=== PATIENT | female | born 1940 | race African-American/Black ===

== ENCOUNTER 2022-04-10 10:56 | Emergency (ER) | payer MEDICARE, SELFPAY ==
[2022-04-10 10:57] VITALS: BP 128/78; PULSE 92; RESP 18; TEMP 36.4; O2SAT 100; BMI 19.1
--- NOTE | 2022-04-10 11:46 | EKG12_ITS ---
Test Reason : Blood Pressure : / mmHG Vent. Rate : 076 BPM Atrial Rate : 076 BPM P-R Int : 182 ms QRS Dur : 090 ms QT Int : 394 ms P-R-T Axes : 068 010 036 degrees QTc Int : 443 ms Normal sinus rhythm Nonspecific T wave abnormality Abnormal ECG Confirmed by JOVITA SAMS, NEIDA ([id number]), editor farm journal MERYL SCOTT ([id number]) on 04/11/2022 11:26:56 AM Referred By: MARIA FERNANDA Confirmed By:NEIDA HUSSEIN MD
--- NOTE | 2022-04-10 11:47 | EDS_ITS ---
HPI History of Present Illness Chief Complaint: Abn Labs Informant: patient Narrative Narrative: Patient not feeling well. She denies any specific symptoms. She is on chemotherapy for some type of cancer that has metastases, but the patient does not know the specifics and there is no one else here to provide history for her. Currently she is in [place] [facility], sees oncology affiliated with [facility]. According to a note left by nursing taken from report from the facility, the patient's niece wanted the patient to be evaluated in the ER because she is not feeling well. I asked the patient this and she confirms that is true. She cannot remember how long it has been since she was not feeling well. She has thrombocytopenia according to labs that were sent with her from outpatient 3 days ago 04/07, shows other platelets are 35 and someone is aware of this and monitoring it. I reviewed those outpatient labs, CBC from 04/07 as well as CBC and CMP from 03/27, and a comprehensive metabolic panel from 04/07. I also reviewed intermediate records that accompany the patient, suggesting that she has lung cancer as her primary. Additionally, she is a full code. There are no notes that accompany the patient that discuss her recent condition, symptoms, vital signs, etc. She sees [facility] with and follows with Dr. Booker. The patient denies having any pain right now, dyspnea, nausea, headache, vision changes, fevers or chills recently, she think she had a little diarrhea recently but is unable to tell me any details about this, she states she saw no blood. Later discussed with daughter, who stated that the patient was more weak and disoriented today than usual. She states she has been getting chemotherapy and whole brain radiation, has been on dexamethasone for several months because of brain mets and tapered off of it 1-2 weeks ago. [facility] Medical History Constipation, unspecified Diverticulosis of intestine, part unspecified, without perforation or abscess without bleeding Essential (primary) hypertension Insomnia, unspecified Major depressive disorder, recurrent, unspecified Malignant neoplasm of unspecified part of unspecified bronchus or lung Other malaise Other specified disorders of bone density and structure, unspecified site Rheumatoid arthritis, unspecified Unspecified osteoarthritis, unspecified site Unspecified protein-calorie malnutrition Home Medications acetaminophen 325 mg tablet 650 mg PO Q6H PRN Pain 04/10/22 [History Last Taken Unknown] albuterol sulfate 90 mcg/actuation aerosol inhaler 1 inh inhalation Q6H SHORTNESS OF BREATH 04/10/22 [History Last Taken 04/10/22 08:30] carvedilol 12.5 mg tablet 12.5 mg PO BID HEART 04/10/22 [History Last Taken 04/10/22 08:30] dexamethasone 4 mg tablet 4 mg PO Q12H #60 tabs 04/10/22 [Rx Last Taken Unknown] dronabinol 2.5 mg capsule (Marinol) 2.5 mg PO BID MALIGNANT NEOPLASM OF BRONCHUS/LUNG 04/10/22 [History Last Taken 04/10/22 08:30] hydroxychloroquine 200 mg tablet 200 mg PO DAILY RHEUMATOID ARTHRITIS 04/10/22 [History Last Taken 04/10/22 08:30] lidocaine 4 % topical patch 1 patch topical DAILY PAIN 04/10/22 [History Last Taken 04/10/22 08:30] magnesium oxide 400 mg PO DAILY SUPPLEMENT 04/10/22 [History Last Taken 04/10/22 08:30] methocarbamol 500 mg tablet 500 mg PO 4X/DAY PAIN 04/10/22 [History Last Taken 04/10/22 08:30] multivitamin with minerals 1 tab PO DAILY SUPPLEMENT 04/10/22 [History Last Taken 04/10/22 08:30] omeprazole 20 mg capsule,delayed release 20 mg PO DAILY ACID REFLUX 04/10/22 [History Last Taken 04/10/22 05:00] ondansetron HCl 8 mg tablet 8 mg PO Q12H PRN NAUSEA/VOMITING 04/10/22 [History Last Taken Unknown] osimertinib 80 mg tablet (Tagrisso) 80 mg PO QODAY MALIGNANT NEOPLASM OF BRONCHUS/LUNG 04/10/22 [History Last Taken 04/10/22 08:30] polyethylene glycol 3350 17 gram/dose oral powder 17 g PO BID CONSTIPATION 04/10/22 [History Last Taken 04/10/22 08:30] sennosides 8.6 mg-docusate sodium 50 mg tablet (Senna Plus) 2 tab-cap PO Q12H PRN Constipation 04/10/22 [History Last Taken Unknown] zinc oxide 40 % topical ointment 1 applic topical TID BUTTOCKS 04/10/22 [History Last Taken 04/10/22 08:30] Allergy/AdvReac Type Severity Reaction Status Date / Time nickel Allergy PT UNABLE Verified 04/10/22 11:06 TO RESPOND-NEEDS F/U Social History Smoking Status: Unknown if ever smoked ROS ROS ED Review of Systems ROS Unobtainable: due to encephalopathy Constitutional Constitutional ED: Reports fatigue and weakness; Denies body ache(s), chills or fever(s) Eyes Eyes: Denies change in vision or diplopia ENT ENT ED: Denies sore throat Cardiovascular Cardiovascular: Denies chest pain or palpitations Respiratory/Chest Respiratory/Chest: Reports cough; Denies dyspnea Gastrointestinal Gastrointestinal: Reports diarrhea; Denies abdominal pain, nausea or vomiting Musculoskeletal Musculoskeletal: Denies back pain or neck pain Integumentary Denies abscess or rash Neurologic Neurologic: Denies headache(s) Psychiatric Psychiatric: Denies suicidal thoughts EXAM Physical Exam Const Vital Signs: 04/10/22 10:57 04/10/22 11:32 04/10/22 12:39 Temperature 97.5 F L Temperature Source Temporal Pulse Rate 92 Respiratory Rate 18 Respiratory Pattern Normal Blood Pressure 128/78 H Blood Pressure Mean 94 Pulse Ox 100 94 Oxygen Delivery Method Room Air Room Air 04/10/22 13:00 04/10/22 15:00 Temperature Temperature Source Pulse Rate 62 95 Respiratory Rate 18 21 H Respiratory Pattern Blood Pressure 154/63 H 124/62 H Blood Pressure Mean 93 82 Pulse Ox Oxygen Delivery Method Positive well nourished and well developed General Appearance ED: well developed and NAD HEENT Reports moist mucous membranes normocephalic and atraumatic Eyes PERRL and EOMs intact bilaterally Neck full ROM and supple Resp normal respiratory effort and clear to auscultation bilaterally Effort and Inspection: able to speak in complete sentences Cardio regular rate, regular rhythm and no murmurs GI non-tender and non-distended Auscultation: normoactive bowel sounds Palpation: soft Back/Spine no CVA tenderness General Back: other FROM Extremity normal to inspection General Extremety ED: Negative for edema, pulses abnormal or tenderness General Extremity: Negative for edema or pulses abnormal Neuro CN's II-XII intact bilaterally and no sensory deficits noted Neuro Narrative: Nonfocal neurologic exam with regards to motor and sensory. I help the patient sit up and she can hold herself up by grabbing the rails, so I can auscultate her lungs posteriorly. However she is too weak to stand even with assistance. Sensorium / Orientation: awake, alert and orientation impaired Motor Exam: general weakness Psych Psych Narrative: Flat affect. Responds appropriately to questions but with 1-2 word answers mostly. Skin no rashes or lesions noted and no wounds MDM MDM MDM Narrative Medical decision making narrative: Patient's vital signs remained normal throughout her ED stay, her blood pressure actually went up a little. She is not hypoxic or in respiratory distress. 1 view chest x-ray appears to show some early infiltrates in the right upper lobe, on my interpretation. Radiology's interpretation has been reviewed and I agree with that. She was a very difficult stick, creating delays in getting lab results. I did have blood cultures obtained, the patient was too weak to get up and urinate, so nurses straight catheter for urinalysis, it does not appear to be the source of infection but her lungs may be. Patient does seem a little disoriented, she can answer yes or no questions, she denies being in any pain or being dyspneic, it is unknown if this is accurate when she said yes she was coughing, I did not hear her cough objectively in the emergency department. I checked several times, the patient's niece had come by but I kept missing her to discuss. She is a lactic acid of 3.7, cardiac work-up unremarkable, liver enzymes are normal, she is a little prerenal but the rest of her metabolic testing is normal. I waited a while for blood counts to come back, reviewing them when they did return. She is not neutropenic, her ANC is 5100. Her thrombocytopenia is a little improved compared to what it was, 44,000 now, she was 35,000 three days ago. We did panculture the patient prior to starting her on empiric antibiotics to cover her for the pneumonia, IV Rocephin and Zithromax. Her vital signs are stable and she is not hypoxic. Called to discuss with her oncologist Dr. Booker. She said the patient was on Decadron for months and recently tapered off of it 1 or 2 weeks ago, she had brain metastases and was getting whole brain radiation that she is now finished with. When getting a restaging scan about 1 month ago, a possible cavitary lesion was noted in the right upper lobe, so the patient actually was scheduled for an outpatient plain CT chest today. She was requesting that we obtain that which I think is reasonable, we will have that done, and she agrees the patient can be safely discharged back to the intermediate to follow-up with her as an outpatient, she is coordinating that with the niece PREETHI. She is in agreement with discontinuing the Bactrim temporarily which may be causing some of the thrombocytopenia, and restarting dexamethasone 4 mg every 12 hours going forward, so I gave her a dose of that here. Lab Data Attestation: I reviewed the patient's lab results. Labs: Laboratory Results - last 24 hr 04/10/22 04/10/22 04/10/22 13:40 13:40 13:40 WBC 5.7 RBC 3.13 L Hgb 9.9 L Hct 31.0 L MCV 99.0 MCH 31.6 MCHC 31.9 L RDW Std Deviation 66.4 H RDW Coeff of Abdirizak 18.4 H Plt Count 44 L* MPV 10.5 Immature Gran % (Auto) 4.200 H Neut % (Auto) 89.1 H Lymph % (Auto) 3.5 L [place] % (Auto) 2.8 Eos % (Auto) 0.0 Baso % (Auto) 0.4 Absolute Neuts (auto) 5.1 Absolute Lymphs (auto) 0.20 L Nucleated RBC % 1.1 Diff Path Review May foll Platelet Estimate MKD DEC Anisocytosis 1+ PT 16.0 H INR 1.3 APTT 30.5 Sodium 140 Potassium 3.6 Chloride 108 H Carbon Dioxide 21.0 Anion Gap 11 BUN 27 H Creatinine 0.89 Estim Creat Clear Calc 42.82 Est GFR (MDRD) Af Amer 78 Est GFR (MDRD) Non-Af 65 BUN/Creatinine Ratio 30.3 H Glucose 177 H Lactic Acid Calcium 9.3 Total Bilirubin 0.50 AST 13 L ALT 23 Alkaline Phosphatase 65 Troponin I High Sens 14 Total Protein 5.4 L Albumin 2.6 L Globulin 2.8 Albumin/Globulin Ratio 0.9 Urine Color Urine Clarity Urine pH Ur Specific [place] Urine Protein Urine Glucose (UA) Urine Ketones Urine Occult Blood Urine Nitrite Urine Bilirubin Urine Urobilinogen Ur Leukocyte Esterase Urine RBC Urine WBC Ur Squamous Epith Cells Urine Bacteria Urine Mucus 04/10/22 04/10/22 13:40 14:30 WBC RBC Hgb Hct MCV MCH MCHC RDW Std Deviation RDW Coeff of Abdirizak Plt Count MPV Immature Gran % (Auto) Neut % (Auto) Lymph % (Auto) [place] % (Auto) Eos % (Auto) Baso % (Auto) Absolute Neuts (auto) Absolute Lymphs (auto) Nucleated RBC % Diff Path Review Platelet Estimate Anisocytosis PT INR APTT Sodium Potassium Chloride Carbon Dioxide Anion Gap BUN Creatinine Estim Creat Clear Calc Est GFR (MDRD) Af Amer Est GFR (MDRD) Non-Af BUN/Creatinine Ratio Glucose Lactic Acid 3.7 H* Calcium Total Bilirubin AST ALT Alkaline Phosphatase Troponin I High Sens Total Protein Albumin Globulin Albumin/Globulin Ratio Urine Color Yellow Urine Clarity Sl. Cloudy Urine pH 6.0 Ur Specific [place] 1.020 Urine Protein 30 H Urine Glucose (UA) 50 H Urine Ketones 5 H Urine Occult Blood Negative Urine Nitrite Negative Urine Bilirubin 1 H Urine Urobilinogen 4 H Ur Leukocyte Esterase 25 H Urine RBC 0 SEEN Urine WBC 0-5 SEEN Ur Squamous Epith Cells 0 SEEN Urine Bacteria 1+ Urine Mucus 0 SEEN Radiography Chest X-Ray - ED: 1 View, Read by ED Physician and Right Infiltrate Diagnostic Testing: Clinical Impression(s) from Imaging Studies Chest X-Ray 04/10/22 13:05 IMPRESSION: Mild increased markings in the right upper lobe as well as medial aspect of the right lung base suggestive of early infiltrate. Blunting of the right cosmetic angle. Electronically Signed: Ifeanyi Shepard MD at 13:36 EST Reading Location ID and State: [facility] / [place] , Service support , Rhythm Strip Rhythm Strip: Sinus Rhythm Rate: 75 Ectopy: None EKG Initial EKG: Attestation: I personally reviewed and interpreted this EKG as follows: Interpretation: Sinus Rhythm, No Acute Injury Pattern and Non-Specific ST Changes (Diffuse flattening otherwise unremarkable T waves. No ST elevation or depressions.) Prior: No Prior Discharge Plan Triage Chief Complaint: Abn Labs ED Provider: Mahesh Benoit Dx/Rx/DC Orders Clinical Impression: Pneumonia, Acquired immunocompromised state, Metastatic primary lung cancer, Pancytopenia due to antineoplastic chemotherapy Instructions: ED Pneumonia (Adult) Prescriptions: New dexamethasone 4 mg tablet 4 mg PO Q12H Qty: 60 0RF Continued methocarbamol 500 mg tablet 500 mg PO 4X/DAY acetaminophen 325 mg Tablet 650 mg PO Q6H PRN (Reason: Pain) carvedilol 12.5 mg tablet 12.5 mg PO BID lidocaine 4 % Adhesive Patch,Medicated 1 patch TOPICAL DAILY ondansetron HCl 8 mg tablet 8 mg PO Q12H PRN (Reason: NAUSEA/VOMITING) sennosides-docusate sodium [Senna Plus] 8.6-50 mg Tablet 2 tab-cap PO Q12H PRN (Reason: Constipation) dronabinol [Marinol] 2.5 mg Capsule 2.5 mg PO BID omeprazole 20 mg capsule,delayed release(DR/EC) 20 mg PO DAILY hydroxychloroquine 200 mg tablet 200 mg PO DAILY multivitamin with minerals Tablet 1 tab PO DAILY polyethylene glycol 3350 17 gram/dose Powder 17 g PO BID albuterol sulfate 90 mcg/actuation HFA aerosol inhaler 1 inh INHALATION Q6H zinc oxide 40 % Ointment 1 applic TOPICAL TID Tagrisso 80 mg tablet 80 mg PO QODAY magnesium oxide 400 mg magnesium Tablet 400 mg PO DAILY Discontinued sulfamethoxazole-trimethoprim [Bactrim DS] 800-160 mg Tablet 1 tab PO MOWEFR dexamethasone 1 mg tablet 1 mg PO DAILY dexamethasone 1 mg tablet 0.5 mg PO DAILY Primary Care Provider: Matthew Ram Referrals: Dr. Jhony [Other] - As soon as possible (call regarding recommendation for follow up; CT and XR images should be sent to gravity prospecting observer for her to review (if technology works as designed)) Matthew Ram MD [Primary Care Provider] - (recheck ideally within next 2-3 days) Activity Restrictions/Additional Instructions: will stop Bactrim for now, may be contributing to low platelets Disposition Disposition: Senior Care Facility
[2022-04-10 12:39] VITALS: O2SAT 94
--- NOTE | 2022-04-10 12:55 | ED.RN ---
ED STAFF UNABLE TO OBTAIN VASCULAR ACCESS, LAB CALLED FOR [facility] TO COME FOR BLOOD DRAW
[2022-04-10 13:00] VITALS: BP 154/63; PULSE 62; RESP 18
--- NOTE | 2022-04-10 13:05 | RAD_ITS ---
STUDY: X-RAY CHEST REASON FOR EXAM: Female, 81 years old. Weakness, immunocompromised TECHNIQUE: Single AP portable view of the chest. COMPARISON: None. FINDINGS: EKG electrodes are seen. Surgical clips are seen in the left axillary region. Mild increased markings in the medial aspect of the right lung base as well as in the left upper lobe suggestive of possible early infiltrates. There is blunting of the right costophrenic angle. Normal size heart. Normal mediastinum and josiah. Normal visualized pulmonary arteries. There is atherosclerotic calcification of the aortic arch with tortuosity. There are diffuse degenerative changes of the visualized thoracic spine. Normal visualized ribs, clavicles, and shoulders. There is no demonstrated abnormality of the visualized soft tissue structures of the upper abdomen. RAD/Chest 1 View (Portable) IMPRESSION: Mild increased markings in the right upper lobe as well as medial aspect of the right lung base suggestive of early infiltrate. Blunting of the right cosmetic angle. Electronically Signed: Ifeanyi Shepard MD at 13:36 EST ,
[2022-04-10 14:02] LABS: Absolute Neutrophil Count 5.1 X10^3/uL (2.0-7.7); Basophil# 0.02 X10^3/uL; Basophil% 0.4 % (0-1); Hemoglobin 9.9 g/dL (12.0-15.0); Lymphocyte % 3.5 % (19-41); Mean Corp Hgb Conc 31.9 g/dL (32-36); Mean Corpuscular Hgb 31.6 pg (27.0-32.0); Mean Platelet Vol. 10.5 fl (6.2-12.0); Monocyte# 0.16 X10^3/uL; Monocyte% 2.8 % (0-10); NRBC Flagged by Analyzer 1.1 % (0-5); Neutrophil # 5.06 X10^3/uL (2.7-7.7); Neutrophil % 89.1 % (47-70); POSITIVE COUNT YES; POSITIVE DIFFERENTIAL YES; POSITIVE MORPHOLOGY YES; Platelet Count 44 K/mm3 (150-450); RBC Distribution Width CV 18.4 % (11.6-14.6); RBC Distribution Width SD 66.4 fl (35.1-43.9); Red Blood Count 3.13 M/mm3 (4.2-5.4); White Blood Count 5.7 K/mm3 (4.4-11.0)
[2022-04-10 14:16] LABS: ALB/GLOB Ratio 0.9 RATIO (0.9-2.4); AST(SGOT) 13 U/L (15-37); Alanine Aminotransfer ALT/SGPT 23 U/L (13-56); Albumin, Serum 2.6 g/dL (3.2-5.0); Alkaline Phosphatase 65 U/L (45-117); Anion Gap 11 (5-15); BUN 27 mg/dL (7-18); BUN/Creat Ratio 30.3 RATIO (10-20); Calcium,Total 9.3 mg/dL (8.5-10.1); Chloride 108 mmol/L (98-107); Creatinine, Serum 0.89 mg/dL (0.55-1.02); EST Glomerular Filtration Rate 65 mL/min (>60); Est Glom Filt Rate - Afr Amer 78 mL/min (>60); Estimated Creatinine Clearance 42.82 ml/min; Globulin 2.8 g/dL (2.2-4.2); Glucose 177 mg/dL (74-106); Potassium 3.6 mmol/L (3.5-5.1); Protein, Total 5.4 g/dL (6.4-8.2); Sodium Level 140 mmol/L (136-145); Troponin-I HS 14 pg/mL (3.0-54.0)
[2022-04-10 14:30] LABS: Lactic Acid 3.7 mmol/L (0.4-1.9)
[2022-04-10 14:31] LABS: International Normalized Ratio 1.3
[2022-04-10 14:32] LABS: Partial Thromboplast Time 30.5 Seconds (24.1-36.2)
[2022-04-10 14:35] LABS: Mucous, Urine 0 SEEN /hpf (<or=2+); Red Blood Cells-Urine 0 SEEN /hpf (0-5); Squamous Epithelial Cells - UA 0 SEEN /hpf (5-10)
[2022-04-10 14:58] LABS: Color, Urine Yellow (Yellow); Glucose, Dipstick 50 mg/dl (Normal); Ketone-Dipstick 5 mg/dl (Negative); Leukocyte Esterase-Dipstick 25 /ul (Negative); Nitrite-Dipstick Negative (Negative); Occult Blood-Urine Negative /ul (Negative); Protein-Dipstick 30 mg/dl (Negative); Urine Clarity Sl. Cloudy (Clear); Urine Urobilinogen 4 mg/dl (Normal)
[2022-04-10 15:00] VITALS: BP 124/62; PULSE 95; RESP 21
[2022-04-10 15:00] LABS: Urine Bilirubin Dipstick 1 mg/dL (Negative)
[2022-04-10 15:05] LABS: Bacteria 1+ /hpf (None Seen); White Blood Cells 0-5 SEEN /hpf (0-5)
[2022-04-10] MEDS: 0.9% Normal Saline 1,000 ML 150 ML IV (15:12)
[2022-04-10] MEDS: Ceftriaxone 1 GM/50 ML BAG IV (15:12)
--- NOTE | 2022-04-10 15:54 | ED.RN ---
UPDATE GIVEN TO ELIZABETH ALFARO
[2022-04-10 15:57] LABS: Differential Indicated SCAN CRITERIA MET
[2022-04-10 15:58] LABS: Anisocytosis 1+; Platelet Estimate MKD DEC (ADEQ)
--- NOTE | 2022-04-10 16:08 | CT_ITS ---
INDICATION: Metastatic lung cancer. Reevaluate possible cavitary lesion in the right lung. EXAMINATION: CT CHEST WITHOUT CONTRAST - CT Chest W/O Contrast Injection TECHNIQUE: Helically acquired images were obtained of the chest. A radiation dose optimization technique was used for this scan. IV Contrast dosage and agent: None. COMPARISON: Chest, April 10, 2022. FINDINGS: LUNGS, PLEURA AND LARGE AIRWAYS: Diffuse emphysematous changes lungs. There are bullae along the anterior pleural surface of the left upper lobe. There is mild stranding and tethering in the posterior right lung apex with associated pleural effusion. There is also patchy density laterally in the right upper lobe best seen on image 45 of series 4. There is no evidence of visualized cavitary mass. There is soft tissue density in the medial right upper lobe just above the diaphragmatic surface. No pneumothorax. THYROID: No thyroid lesions. HEART AND PERICARDIUM: Heart size is normal. No pericardial effusion. CORONARY ARTERIES: Coronary artery calcification are seen VESSELS: Tortuous thoracic aorta with mild atherosclerotic changes. No aneurysm. Normal pulmonary arteries. MEDIASTINUM AND JOESPH: No mediastinal or hilar adenopathy. Esophagus is unremarkable. No hiatal hernia. UPPER ABDOMEN: No acute pathology. BONES: There is diffuse patchy sclerotic changes in the visualized bony structures, most marked in the thoracic spine consistent with metastatic disease. Sclerotic areas are also seen in the sternum and ribs. There are vague expansile lytic lesions in several ribs as well as the right scapula. CT/Chest without Contrast IMPRESSION: 1. Right pleural effusion with scarring and tethering in the right lung apex. 2. Patchy infiltrate in the right upper lobe. There is no visualized cavitary mass. 3. Bony metastases. 4. Tortuous thoracic aorta. Electronically Signed: Behzad Beverly DO at 17:14 EST ,
[2022-04-10 17:00] VITALS: BP 113/49; PULSE 94; RESP 15
[2022-04-10] MEDS: dexAMETHasone 4 MG/ML Vial IV (17:09)
--- NOTE | 2022-04-10 17:28 | EX.ED.DYSGE1 ---
HPI History of Present Illness Chief Complaint: Abn Labs [facility] Medical History Constipation, unspecified Diverticulosis of intestine, part unspecified, without perforation or abscess without bleeding Essential (primary) hypertension Insomnia, unspecified Major depressive disorder, recurrent, unspecified Malignant neoplasm of unspecified part of unspecified bronchus or lung Other malaise Other specified disorders of bone density and structure, unspecified site Rheumatoid arthritis, unspecified Unspecified osteoarthritis, unspecified site Unspecified protein-calorie malnutrition Home Medications acetaminophen 325 mg tablet 650 mg PO Q6H PRN Pain 04/10/22 [History Last Taken Unknown] albuterol sulfate 90 mcg/actuation aerosol inhaler 1 inh inhalation Q6H SHORTNESS OF BREATH 04/10/22 [History Last Taken 04/10/22 08:30] carvedilol 12.5 mg tablet 12.5 mg PO BID HEART 04/10/22 [History Last Taken 04/10/22 08:30] dexamethasone 4 mg tablet 4 mg PO Q12H #60 tabs 04/10/22 [Rx Last Taken Unknown] doxycycline monohydrate 100 mg capsule 100 mg PO BID #20 CAPSULES 04/10/22 [Rx Last Taken Unknown] dronabinol 2.5 mg capsule (Marinol) 2.5 mg PO BID MALIGNANT NEOPLASM OF BRONCHUS/LUNG 04/10/22 [History Last Taken 04/10/22 08:30] hydroxychloroquine 200 mg tablet 200 mg PO DAILY RHEUMATOID ARTHRITIS 04/10/22 [History Last Taken 04/10/22 08:30] lidocaine 4 % topical patch 1 patch topical DAILY PAIN 04/10/22 [History Last Taken 04/10/22 08:30] magnesium oxide 400 mg PO DAILY SUPPLEMENT 04/10/22 [History Last Taken 04/10/22 08:30] methocarbamol 500 mg tablet 500 mg PO 4X/DAY PAIN 04/10/22 [History Last Taken 04/10/22 08:30] multivitamin with minerals 1 tab PO DAILY SUPPLEMENT 04/10/22 [History Last Taken 04/10/22 08:30] omeprazole 20 mg capsule,delayed release 20 mg PO DAILY ACID REFLUX 04/10/22 [History Last Taken 04/10/22 05:00] ondansetron HCl 8 mg tablet 8 mg PO Q12H PRN NAUSEA/VOMITING 04/10/22 [History Last Taken Unknown] osimertinib 80 mg tablet (Tagrisso) 80 mg PO QODAY MALIGNANT NEOPLASM OF BRONCHUS/LUNG 04/10/22 [History Last Taken 04/10/22 08:30] polyethylene glycol 3350 17 gram/dose oral powder 17 g PO BID CONSTIPATION 04/10/22 [History Last Taken 04/10/22 08:30] sennosides 8.6 mg-docusate sodium 50 mg tablet (Senna Plus) 2 tab-cap PO Q12H PRN Constipation 04/10/22 [History Last Taken Unknown] zinc oxide 40 % topical ointment 1 applic topical TID BUTTOCKS 04/10/22 [History Last Taken 04/10/22 08:30] Allergy/AdvReac Type Severity Reaction Status Date / Time nickel Allergy PT UNABLE Verified 04/10/22 11:06 TO RESPOND-NEEDS F/U Social History Smoking Status: Unknown if ever smoked EXAM Physical Exam Const Vital Signs: 04/10/22 10:57 04/10/22 11:32 04/10/22 12:39 Temperature 97.5 F L Temperature Source Temporal Pulse Rate 92 Respiratory Rate 18 Respiratory Pattern Normal Blood Pressure 128/78 H Blood Pressure Mean 94 Pulse Ox 100 94 Oxygen Delivery Method Room Air Room Air 04/10/22 13:00 04/10/22 15:00 04/10/22 17:00 Temperature Temperature Source Pulse Rate 62 95 94 Respiratory Rate 18 21 H 15 Respiratory Pattern Blood Pressure 154/63 H 124/62 H 113/49 L Blood Pressure Mean 93 82 70 Pulse Ox Oxygen Delivery Method [facility] Lab Data Labs: Laboratory Results - last 24 hr 04/10/22 04/10/22 04/10/22 13:40 13:40 13:40 WBC 5.7 RBC 3.13 L Hgb 9.9 L Hct 31.0 L MCV 99.0 MCH 31.6 MCHC 31.9 L RDW Std Deviation 66.4 H RDW Coeff of Abdirizak 18.4 H Plt Count 44 L* MPV 10.5 Immature Gran % (Auto) 4.200 H Neut % (Auto) 89.1 H Lymph % (Auto) 3.5 L Cherry % (Auto) 2.8 Eos % (Auto) 0.0 Baso % (Auto) 0.4 Absolute Neuts (auto) 5.1 Absolute Lymphs (auto) 0.20 L Nucleated RBC % 1.1 Diff Path Review May foll Platelet Estimate MKD DEC Anisocytosis 1+ PT 16.0 H INR 1.3 APTT 30.5 Sodium 140 Potassium 3.6 Chloride 108 H Carbon Dioxide 21.0 Anion Gap 11 BUN 27 H Creatinine 0.89 Estim Creat Clear Calc 42.82 Est GFR (MDRD) Af Amer 78 Est GFR (MDRD) Non-Af 65 BUN/Creatinine Ratio 30.3 H Glucose 177 H Lactic Acid Calcium 9.3 Total Bilirubin 0.50 AST 13 L ALT 23 Alkaline Phosphatase 65 Troponin I High Sens 14 Total Protein 5.4 L Albumin 2.6 L Globulin 2.8 Albumin/Globulin Ratio 0.9 Urine Color Urine Clarity Urine pH Ur Specific [place] Urine Protein Urine Glucose (UA) Urine Ketones Urine Occult Blood Urine Nitrite Urine Bilirubin Urine Urobilinogen Ur Leukocyte Esterase Urine RBC Urine WBC Ur Squamous Epith Cells Urine Bacteria Urine Mucus 04/10/22 04/10/22 13:40 14:30 WBC RBC Hgb Hct MCV MCH MCHC RDW Std Deviation RDW Coeff of Abdirizak Plt Count MPV Immature Gran % (Auto) Neut % (Auto) Lymph % (Auto) Cherry % (Auto) Eos % (Auto) Baso % (Auto) Absolute Neuts (auto) Absolute Lymphs (auto) Nucleated RBC % Diff Path Review Platelet Estimate Anisocytosis PT INR APTT Sodium Potassium Chloride Carbon Dioxide Anion Gap BUN Creatinine Estim Creat Clear Calc Est GFR (MDRD) Af Amer Est GFR (MDRD) Non-Af BUN/Creatinine Ratio Glucose Lactic Acid 3.7 H* Calcium Total Bilirubin AST ALT Alkaline Phosphatase Troponin I High Sens Total Protein Albumin Globulin Albumin/Globulin Ratio Urine Color Yellow Urine Clarity Sl. Cloudy Urine pH 6.0 Ur Specific [place] 1.020 Urine Protein 30 H Urine Glucose (UA) 50 H Urine Ketones 5 H Urine Occult Blood Negative Urine Nitrite Negative Urine Bilirubin 1 H Urine Urobilinogen 4 H Ur Leukocyte Esterase 25 H Urine RBC 0 SEEN Urine WBC 0-5 SEEN Ur Squamous Epith Cells 0 SEEN Urine Bacteria 1+ Urine Mucus 0 SEEN Radiography Diagnostic Testing: Clinical Impression(s) from Imaging Studies Chest X-Ray 04/10/22 13:05 IMPRESSION: Mild increased markings in the right upper lobe as well as medial aspect of the right lung base suggestive of early infiltrate. Blunting of the right cosmetic angle. Electronically Signed: Ifeanyi Shepard MD at 13:36 EST , Chest CT 04/10/22 16:08 IMPRESSION: 1. Right pleural effusion with scarring and tethering in the right lung apex. 2. Patchy infiltrate in the right upper lobe. There is no visualized cavitary mass. 3. Bony metastases. 4. Tortuous thoracic aorta. Electronically Signed: Behzad Beverly DO at 17:14 EST , Rhythm Strip Rhythm Strip: Sinus Rhythm Rate: 75 Ectopy: None Discharge Plan Triage Chief Complaint: Abn Labs ED Provider: Mahesh Benoit Dx/Rx/DC Orders Clinical Impression: Pneumonia, Acquired immunocompromised state, Metastatic primary lung cancer, Pancytopenia due to antineoplastic chemotherapy Instructions: ED Pneumonia (Adult) Prescriptions: New dexamethasone 4 mg tablet 4 mg PO Q12H Qty: 60 0RF doxycycline monohydrate 100 mg capsule 100 mg PO BID Qty: 20 0RF Continued methocarbamol 500 mg tablet 500 mg PO 4X/DAY acetaminophen 325 mg Tablet 650 mg PO Q6H PRN (Reason: Pain) carvedilol 12.5 mg tablet 12.5 mg PO BID lidocaine 4 % Adhesive Patch,Medicated 1 patch TOPICAL DAILY ondansetron HCl 8 mg tablet 8 mg PO Q12H PRN (Reason: NAUSEA/VOMITING) sennosides-docusate sodium [Senna Plus] 8.6-50 mg Tablet 2 tab-cap PO Q12H PRN (Reason: Constipation) dronabinol [Marinol] 2.5 mg Capsule 2.5 mg PO BID omeprazole 20 mg capsule,delayed release(DR/EC) 20 mg PO DAILY hydroxychloroquine 200 mg tablet 200 mg PO DAILY multivitamin with minerals Tablet 1 tab PO DAILY polyethylene glycol 3350 17 gram/dose Powder 17 g PO BID albuterol sulfate 90 mcg/actuation HFA aerosol inhaler 1 inh INHALATION Q6H zinc oxide 40 % Ointment 1 applic TOPICAL TID Tagrisso 80 mg tablet 80 mg PO QODAY magnesium oxide 400 mg magnesium Tablet 400 mg PO DAILY Discontinued sulfamethoxazole-trimethoprim [Bactrim DS] 800-160 mg Tablet 1 tab PO MOWEFR dexamethasone 1 mg tablet 1 mg PO DAILY dexamethasone 1 mg tablet 0.5 mg PO DAILY Primary Care Provider: Matthew Ram Referrals: Dr. Jhony [Other] - As soon as possible (call regarding recommendation for follow up; CT and XR images should be sent to gaming surveillance observer for her to review (if technology works as designed)) Matthew Ram MD [Primary Care Provider] - (recheck ideally within next 2-3 days) Activity Restrictions/Additional Instructions: will stop Bactrim for now, may be contributing to low platelets Disposition Disposition: [facility] Facility
[2022-04-10 17:53] LABS: Reflex Lactate? Y
--- NOTE | 2022-04-10 17:54 | ED.RN ---
REPORT CALLED TO ELIZABETH ALFARO REGARDING PATIENT BEING DISCHARGED BACK TO SNF.
[2022-04-10 19:01] VITALS: BP 134/67; PULSE 71
--- NOTE | 2022-04-10 20:04 | NURSING ---
CALLED FOR AN UPDATED ETA FROM PHYSICIANS- THE NEW ETA IS NOW 2039
[2022-04-11 14:52] LABS: Pathologist Review Reviewed
== END 2022-04-10 21:12 | disposition skilled nursing facility (03) ==
PROVIDERS: Emergency Provider Emergency Medicine; PCP Family Medicine; Visit Provider Emergency Medicine
DX: J18.9 Pneumonia, unspecified organism (principal); C79.31 Secondary malignant neoplasm of brain; C79.51 Secondary malignant neoplasm of bone; C34.90 Malignant neoplasm of unspecified part of unspecified bronchus or lung; D61.810 Antineoplastic chemotherapy induced pancytopenia; D69.6 Thrombocytopenia, unspecified; I10 Essential (primary) hypertension; T45.1X5A Adverse effect of antineoplastic and immunosuppressive drugs, initial encounter; Z92.3 Personal history of irradiation; Z79.899 Other long term (current) drug therapy
CPT/HCPCS: 36415; 71045; 71250; 80053; 81001; 83605; 84484; 85025; 85610; 85730; 87040; 87077; 87086; 87088; 87186; 93005; 96361; 96365; 96366; 96367; 96375; 99285; J7030; J7040; A4216